=== PATIENT | female | born 1990 | race Caucasian/White ===

== ENCOUNTER 2016-12-24 14:36 | Emergency (ER) | payer SELFPAY ==
--- NOTE | 2016-12-24 15:15 | ER Document Report ---
ED Skin Rash/Insect Bite/Abscs - General Mode of Arrival: Ambulatory Information source: Patient TRAVEL OUTSIDE OF THE [place] IN LAST 30 DAYS: No - HPI Patient complains to provider of: Tender/swollen area Onset: Yesterday - General Chief Complaint: Abscess Stated Complaint: POSSIBLE ABSCESS Time Seen by Provider: 12/24/16 15:15 - Related Data Allergies/Adverse Reactions: No Known Allergies Allergy (Verified 12/24/16 14:45) Past Medical History - Social History Smoking Status: Current Every Day Smoker Chew tobacco use (# tins/day): No Frequency of alcohol use: Rare Drug Abuse: Heroin Family History: Reviewed & Not Pertinent Renal/ Medical History: Reports: Hx Kidney Stones. Denies: Hx Peritoneal Dialysis Surgical Hx: Negative - Immunizations Hx Diphtheria, Pertussis, Tetanus Vaccination: Yes
--- NOTE | 2016-12-24 16:08 | ER Document Report ---
ED Skin Rash/Insect Bite/Abscs - General Chief Complaint: Abscess Stated Complaint: POSSIBLE ABSCESS Time Seen by Provider: 12/24/16 15:15 Mode of Arrival: Ambulatory Information source: Patient Notes: 26 yo intermitten IV heroin user developed left foarearm abscess after using with a clean needle 5 days ago. While she was waiting to be seen it broke open. No fever or systemic symptoms. TRAVEL OUTSIDE OF THE [place] IN LAST 30 DAYS: No - Related Data Allergies/Adverse Reactions: No Known Allergies Allergy (Verified 12/24/16 14:45) Past Medical History - General Information source: Patient - Social History Smoking Status: Current Every Day Smoker Chew tobacco use (# tins/day): No Frequency of alcohol use: Rare Drug Abuse: Heroin Lives with: Alone Family History: Reviewed & Not Pertinent Renal/ Medical History: Reports: Hx Kidney Stones. Denies: Hx Peritoneal Dialysis Skin Medical History: Denies Hx MRSA Surgical Hx: Negative - Immunizations Hx Diphtheria, Pertussis, Tetanus Vaccination: Yes Review of Systems - Review of Systems Constitutional: No symptoms reported EENT: No symptoms reported Cardiovascular: No symptoms reported Respiratory: No symptoms reported Gastrointestinal: No symptoms reported Genitourinary: No symptoms reported Female Genitourinary: No symptoms reported Musculoskeletal: No symptoms reported Skin: See HPI Hematologic/Lymphatic: No symptoms reported Neurological/Psychological: No symptoms reported Physical Exam - Vital signs Vitals: Temp Pulse Resp BP Pulse Ox 98.2 F 102 H 16 111/81 100 12/24/16 14:45 12/24/16 14:45 12/24/16 14:45 12/24/16 14:45 12/24/16 14:45 Interpretation: Normal - General General appearance: Appears well, Alert In distress: None - HEENT Head: Normocephalic, Atraumatic Eyes: Normal Pupils: PERRL - Respiratory Respiratory status: No respiratory distress Chest status: Nontender Breath sounds: Normal Chest palpation: Normal - Cardiovascular Rhythm: Regular Heart sounds: Normal auscultation Murmur: No - Back Back: Normal, Nontender - Extremities General upper extremity: Normal inspection, Nontender, Normal color, Normal ROM , Normal temperature General lower extremity: Normal inspection, Nontender, Normal color, Normal ROM , Normal temperature, Normal weight bearing. No: Kevin's sign - Neurological Neuro grossly intact: Yes Cognition: Normal Orientation: AAOx4 [place] Coma Scale Eye Opening: Spontaneous [place] Coma Scale Verbal: Oriented [place] Coma Scale Motor: Obeys Commands [place] Coma Scale Total: 15 Speech: Normal Motor strength normal: LUE, RUE, LLE, RLE Sensory: Normal - Psychological Associated symptoms: Normal affect, Normal mood - Skin Skin Temperature: Warm Skin Moisture: Dry Skin Color: Normal Skin irregularity: Abscess - open 1cm with some necrotic tissue, Tender indurated area Location of irregularity: Extremities - left volar proximal orearm Character of irregularity: Erythematous Irregularity with: Tenderness, Lymphangitis - to proximal upper arm, nothing is circumferential, n/v/ intact distal to the wound Course - Re-evaluation Re-evalutation: 12/24/16 16:[address] Loera for antimicrobial coverage since this was an abscess due to IV heroin use. The patient states it was a clean needle. 12/24/16 16:54 Procedure note: lidocaine 1% 4 ml anesthetized wound, devitalized tissue debrided, corner of 4 x 4 gauze into wound, coban. - Vital Signs Vital signs: Temp Pulse Resp BP Pulse Ox 98.8 F 93 16 139/82 H 97 12/24/16 17:00 12/24/16 17:00 12/24/16 17:00 12/24/16 17:00 12/24/16 17:00 Discharge - Discharge Clinical Impression: Abscess of left forearm, IV heroin use, debridement left foarearm wound Condition: Good Disposition: HOME, SELF-CARE Instructions: Abscess ([facility]), Cephalexin ([facility]), Post Incision and Drainage, Trimethoprim-Sulfa ([facility]), Elevation & Warmth ([facility]) Additional Instructions: keep wound covered, elevate, warm compress return to ER tomorrow for wound check take the antibiotics until they are gone stop injecting heroin seek counseling for drug addiction, list given to you Please complete the patient satisfaction survey if you get one, and return it.. If you do not receive a survey, then you can go to the [facility] website, [email or web address] and place your comments about your very good care. Thank you very much. It was a pleasure being your medical provider today. Prescriptions: Cephalexin Monohydrate [Keflex 500 mg Capsule] 500 mg PO QID #28 capsule Sulfamethoxazole/Trimethoprim [Sulfamethoxazole-Tmp Ds Tablet] 1 each PO BID # 14 tablet
[2016-12-24] MEDS ORDERED: CEPHALEXIN 500 MG CAPSULE PO ONE (16:13)
[2016-12-24] MEDS ORDERED: SULFAMETHOXAZOLE/TRIMETHOPRIM 800-160 MG TABLET PO ONE (16:13)
[2016-12-24 17:02] VITALS: BP 139/82
== END 2016-12-24 17:01 | disposition home or self-care (01) ==
LOC: ER 14:36
DX: L02.414 Cutaneous abscess of left upper limb (principal); F11.10 Opioid abuse, uncomplicated; F17.200 Nicotine dependence, unspecified, uncomplicated
CPT/HCPCS: 87070; 87077; 87205; 99283